=== PATIENT | female | born 1995 | race Caucasian/White ===

== ENCOUNTER 2017-01-27 23:58 | Day surgery (SDC) | payer OTHER, SELFPAY ==
[2017-01-28] MEDS ORDERED: Ondansetron 4 MG/2 ML SDV IVPUSH ONE (00:22)
[2017-01-28] MEDS ORDERED: Sodium Chloride 0.9% 1,000 ML IV ONE (00:22)
[2017-01-28] MEDS ORDERED: Ondansetron 4 MG Tab.DIS PO PRN (00:22)
--- NOTE | 2017-01-28 00:28 | EDM.PDOC ---
ED HPI GENERAL MEDICAL PROBLEM - General Chief Complaint: Abdominal Pain Stated Complaint: PT HAS STOMACH PAINS Time Seen by Provider: 01/28/17 00:28 Source of Information: Reports: Patient - History of Present Illness INITIAL COMMENTS - FREE TEXT/NARRATIVE: HISTORY AND PHYSICAL: History of present illness: Patient is had abdominal pain and nausea increasing throughout the day currently vomiting with increased pain after work this evening right upper and lower quadrant as well as. Umbilical pain no fever chills sweats Review of systems: As per history of present illness and below otherwise all systems reviewed and negative. Past medical history: As per history of present illness and as reviewed below otherwise noncontributory. Surgical history: As per history of present illness and as reviewed below otherwise noncontributory. Social history: No reported history of drug or alcohol abuse. Family history: As per history of present illness and as reviewed below otherwise noncontributory. Physical exam: HEENT: Atraumatic, normocephalic, pupils reactive, negative for conjunctival pallor or scleral icterus, mucous membranes moist, throat clear, neck supple, nontender, trachea midline. Lungs: Clear to auscultation, breath sounds equal bilaterally, chest nontender. Heart: S1S2, regular, negative for clicks, rubs, or JVD. Abdomen: Soft, nondistended, nontender. Negative for masses or hepatosplenomegaly. Negative for costovertebral tenderness. Pelvis: Stable nontender. Genitourinary: Deferred. Rectal: Deferred. Extremities: Atraumatic, negative for cords or calf pain. Neurovascular unremarkable. Neuro: Awake, alert, oriented. Cranial nerves II through XII unremarkable. Cerebellum unremarkable. Motor and sensory unremarkable throughout. Exam nonfocal. Diagnostics: []Lab as below CBC CMP amylase lipase hCG UA CT abdomen pelvis with contrast Therapeutics: []Normal saline bolus Zofran 8 mg IV Toradol 30 mg IV Normal saline 1 25 mL per hour Morphine 2 mg IV Impression: []Abdominal pain Appendicitis Definitive disposition and diagnosis as appropriate pending reevaluation and review of above. Abdominal Pain Score (Numeric/FACES): 8 - Related Data Allergies Allergy/AdvReac Type Severity Reaction Status Date / Time amoxicillin Allergy Other Verified 01/28/17 00:18 Penicillins Allergy Other Verified 01/28/17 00:18 Home Meds: Home Meds . [No Known Home Meds] 01/28/17 [History] Past Medical History - Past Health History Medical/Surgical History: Denies Medical/Surgical History Social & Family History - Tobacco Use Smoking Status *Q: Never Smoker Second Hand Smoke Exposure: No - Caffeine Use Caffeine Use: Reports: Coffee, Energy Drinks, Soda, Tea - Recreational Drug Use Recreational Drug Use: No ED ROS GENERAL - Review of Systems Review Of Systems: ROS reveals no pertinent complaints other than HPI. ED EXAM, GENERAL - Physical Exam Exam: See Below Course - Vital Signs Last Recorded V/S: Last Vital Signs Temp 97.6 F 01/28/17 00:23 Pulse 73 01/28/17 00:23 Resp 18 01/28/17 00:23 BP 128/53 L 01/28/17 00:23 Pulse Ox 97 01/28/17 00:23 - Orders/Labs/Meds Orders: Active Orders 24 hr Category Date Time Status Abdomen Pelvis w Cont [CT] Stat Exams 01/28/17 00:22 Taken Ondansetron [Zofran ODT] Med 01/28/17 00:22 Active 8 mg PO ONETIME PRN Medication Orders Ondansetron HCl (Zofran Odt) 8 mg PO ONETIME PRN PRN Reason: Nausea/Vomiting Labs: Laboratory Tests 01/28/17 01/28/17 01/28/17 Range/Units 00:21 00:21 00:31 WBC 19.03 H (4.0-11.0) K/uL RBC 4.66 (4.30-5.90) M/uL Hgb 13.5 (12.0-16.0) g/dL Hct 39.4 (36.0-46.0) % MCV 84.5 (80.0-98.0) fL MCH 29.0 (27.0-32.0) pg MCHC 34.3 (31.0-37.0) g/dL RDW Std Deviation 37.2 (28.0-62.0) fl RDW Coeff of Flaquita 12 (11.0-15.0) % Plt Count 342 (150-400) K/uL MPV 9.10 (7.40-12.00) fL Neut % (Auto) 91.6 H (48.0-80.0) % Lymph % (Auto) 5.1 L (16.0-40.0) % [place] % (Auto) 3.3 (0.0-15.0) % Eos % (Auto) 0.0 (0.0-7.0) % Baso % (Auto) 0.0 (0.0-1.5) % Neut # (Auto) 17.4 H (1.4-5.7) K/uL Lymph # (Auto) 1.0 (0.6-2.4) K/uL [place] # (Auto) 0.6 (0.0-0.8) K/uL Eos # (Auto) 0.0 (0.0-0.7) K/uL Baso # (Auto) 0.0 (0.0-0.1) K/uL Sodium (136-146) mmol/L Potassium (3.5-5.1) mmol/L Chloride (98-110) mmol/L Carbon Dioxide (21-31) mmol/L BUN (6.0-23.0) mg/dL Creatinine (0.6-1.5) mg/dL Est Cr Clr Drug Dosing mL/min Estimated GFR (MDRD) ml/min Glucose (60-110) mg/dL Calcium (8.8-10.8) mg/dL Total Bilirubin (0.1-1.5) mg/dL AST (5-40) IU/L ALT (8-54) IU/L Alkaline Phosphatase (40-150) Total Protein (6.0-8.0) g/dL Albumin (3.5-5.0) g/dL Globulin (2.0-3.5) g/dL Albumin/Globulin Ratio (1.3-2.8) Amylase (10-90) U/L Lipase (7-80) U/L Urine Color YELLOW Urine Appearance CLEAR Urine pH 7.0 (5.0-8.0) Ur Specific [employer] 1.025 (1.001-1.035) Urine Protein NEGATIVE (NEGATIVE) mg/dL Urine Glucose (UA) NEGATIVE (NEGATIVE) mg/dL Urine Ketones 40 H (NEGATIVE) mg/dL Urine Occult Blood NEGATIVE (NEGATIVE) Urine Nitrite NEGATIVE (NEGATIVE) Urine Bilirubin NEGATIVE (NEGATIVE) Urine Urobilinogen 0.2 (<2.0) EU/dL Ur Leukocyte Esterase NEGATIVE (NEGATIVE) Urine RBC 0-2 (0-2/HPF) Urine WBC 1-3 (0-5/HPF) Ur Epithelial Cells FEW (NONE-FEW) Urine Bacteria FEW (NEGATIVE) Urine Mucus FEW (NONE-MOD) Urine HCG, Qual NEGATIVE (NEGATIVE) 01/28/17 Range/Units 00:31 WBC (4.0-11.0) K/uL RBC (4.30-5.90) M/uL Hgb (12.0-16.0) g/dL Hct (36.0-46.0) % MCV (80.0-98.0) fL MCH (27.0-32.0) pg MCHC (31.0-37.0) g/dL RDW Std Deviation (28.0-62.0) fl RDW Coeff of Flaquita (11.0-15.0) % Plt Count (150-400) K/uL MPV (7.40-12.00) fL Neut % (Auto) (48.0-80.0) % Lymph % (Auto) (16.0-40.0) % [place] % (Auto) (0.0-15.0) % Eos % (Auto) (0.0-7.0) % Baso % (Auto) (0.0-1.5) % Neut # (Auto) (1.4-5.7) K/uL Lymph # (Auto) (0.6-2.4) K/uL [place] # (Auto) (0.0-0.8) K/uL Eos # (Auto) (0.0-0.7) K/uL Baso # (Auto) (0.0-0.1) K/uL Sodium 138 (136-146) mmol/L Potassium 3.9 (3.5-5.1) mmol/L Chloride 105 (98-110) mmol/L Carbon Dioxide 22 (21-31) mmol/L BUN 10 (6.0-23.0) mg/dL Creatinine 0.8 (0.6-1.5) mg/dL Est Cr Clr Drug Dosing 93.56 mL/min Estimated GFR (MDRD) > 60.0 ml/min Glucose 145 H (60-110) mg/dL Calcium 9.6 (8.8-10.8) mg/dL Total Bilirubin 0.5 (0.1-1.5) mg/dL AST 19 (5-40) IU/L ALT 14 (8-54) IU/L Alkaline Phosphatase 74 (40-150) Total Protein 7.6 (6.0-8.0) g/dL Albumin 4.4 (3.5-5.0) g/dL Globulin 3.2 (2.0-3.5) g/dL Albumin/Globulin Ratio 1.4 (1.3-2.8) Amylase 60 (10-90) U/L Lipase 13 (7-80) U/L Urine Color Urine Appearance Urine pH (5.0-8.0) Ur Specific [employer] (1.001-1.035) Urine Protein (NEGATIVE) mg/dL Urine Glucose (UA) (NEGATIVE) mg/dL Urine Ketones (NEGATIVE) mg/dL Urine Occult Blood (NEGATIVE) Urine Nitrite (NEGATIVE) Urine Bilirubin (NEGATIVE) Urine Urobilinogen (<2.0) EU/dL Ur Leukocyte Esterase (NEGATIVE) Urine RBC (0-2/HPF) Urine WBC (0-5/HPF) Ur Epithelial Cells (NONE-FEW) Urine Bacteria (NEGATIVE) Urine Mucus (NONE-MOD) Urine HCG, Qual (NEGATIVE) Meds: Medications Generic Name Dose Route Start Last Admin Trade Name Freq PRN Reason Stop Dose Admin Ondansetron HCl 8 mg 01/28/17 00:22 Zofran Odt PO ONETIME PRN Nausea/Vomiting Discontinued Medications Generic Name Dose Route Start Last Admin Trade Name Freq PRN Reason Stop Dose Admin Sodium Chloride 1,000 mls @ 999 mls/hr 01/28/17 00:22 01/28/17 00:43 Normal Saline IV 01/28/17 01:22 999 mls/hr STAT ONE Administration Ketorolac Tromethamine 30 mg 01/28/17 00:43 01/28/17 00:50 Toradol IVPUSH 01/28/17 00:44 30 mg ONETIME ONE Administration Ondansetron HCl 8 mg 01/28/17 00:22 01/28/17 00:43 Zofran IVPUSH 01/28/17 00:23 8 mg ONETIME ONE Administration Departure - Departure Time of Disposition: 03:31 Disposition: Still A Patient 30 Condition: Fair Clinical Impression: Appendicitis - Discharge Information Referrals: PCP,None [Primary Care Provider] - Forms: ED Department Discharge - My Orders Last 24 Hours: My Active Orders 01/28/17 00:22 Abdomen Pelvis w Cont [CT] Stat Ondansetron [Zofran ODT] 8 mg PO ONETIME PRN - Assessment/Plan Last 24 Hours: My Active Orders 01/28/17 00:22 Abdomen Pelvis w Cont [CT] Stat Ondansetron [Zofran ODT] 8 mg PO ONETIME PRN
[2017-01-28] MEDS ORDERED: Ketorolac 30 MG/ML SDV IVPUSH ONE (00:43)
[2017-01-28 01:02] LABS: CHLORIDE,CL 105 mmol/L (98-110); SODIUM,NA 138 mmol/L (136-146)
[2017-01-28] MEDS ORDERED: Levofloxacin/Dextrose 5%-Water 750 MG in Premix Bag 1 BAG IV ONE (04:25)
[2017-01-28] MEDS ORDERED: Lactated Ringers 1,000 ML IV SCH ×3 (04:30→06:30)
--- NOTE | 2017-01-28 04:34 | PCM.SN ---
- Free Text/Narrative Note: pt seen, chart reviewed; acute appendicitis, no abscess/rupture from ct, now for surg, r/b dw pt re bleeding/infection/damage to nearby organs/abd abscess, pt concurs and proceed. [id number]
[2017-01-28] MEDS ORDERED: Propofol 200 MG/20 ML SDV ONE (04:41)
[2017-01-28] MEDS ORDERED: Midazolam 1 MG/ML 2 ML SDV ONE (04:41)
[2017-01-28] MEDS ORDERED: fentaNYL 100 MCG/2 ML SDV ONE (04:41)
[2017-01-28] MEDS ORDERED: HYDROmorphone 2 MG/ML Syringe ONE (04:42)
[2017-01-28] MEDS ORDERED: Lidocaine 2% 5 ML SDV ONE (04:43)
[2017-01-28] MEDS ORDERED: Octyl 2-Cyanoacrylate 1 Tube ONE (04:43)
[2017-01-28] MEDS ORDERED: Neostigmine Methylsulfate 1 MG/ML 5 ML Syringe ONE (04:43)
[2017-01-28] MEDS ORDERED: Rocuronium 10 MG/ML 10 ML Syringe ONE (04:43)
[2017-01-28] MEDS ORDERED: Ondansetron 4 MG/2 ML SDV ONE (04:43)
[2017-01-28] MEDS ORDERED: diphenhydrAMINE 50 MG/ML SDV ONE (04:43)
[2017-01-28] MEDS ORDERED: Bupivacaine 25%/EPINEPHrine/PF 30 ML ONE (04:43)
[2017-01-28] MEDS ORDERED: fentaNYL 100 MCG/2 ML SDV IVPUSH PRN (04:55)
--- NOTE | 2017-01-28 04:55 | PCM.PREANE ---
Preanesthetic Assessment - Procedure Proposed Procedure: appendectomy - Anesthesia/Transfusion/Family Hx Anesthesia History: Prior Anesthesia Without Reaction (breast reduction, fractures repaired) Family History of Anesthesia Reaction: No - Review of Systems General: No Symptoms Pulmonary: No Symptoms Cardiovascular: No Symptoms Gastrointestinal: No Symptoms, Abdominal Pain Neurological: No Symptoms Other: Reports: None - Physical Assessment NPO Status Date: 01/27/17 NPO Status Time: 18:00 O2 Sat by Pulse Oximetry: 97 Respiratory Rate: 18 Vital Signs: Last Vital Signs Temp 36.4 C 01/28/17 00:23 Pulse 73 01/28/17 00:23 Resp 18 01/28/17 00:23 BP 128/53 L 01/28/17 00:23 Pulse Ox 97 01/28/17 00:23 Height: 1.6 m Weight: 72.575 kg ASA Class: 1E Mental Status: Alert & Oriented x3 Dentition: Reports: Normal Dentition Thyro-Mental Finger Breadths: 3 Mouth Opening Finger Breadths: 3 ROM/Head Extension: Full Lungs: Clear to Auscultation, Normal Respiratory Effort Cardiovascular: Regular Rate, Regular Rhythm - Lab Values: Laboratory Last Values WBC 19.03 K/uL (4.0-11.0) H 12 00:31 RBC 4.66 M/uL (4.30-5.90) 01/28/17 00:31 Hgb 13.5 g/dL (12.0-16.0) 01/28/17 00:31 Hct 39.4 % (36.0-46.0) 01/28/17 00:31 MCV 84.5 fL (80.0-98.0) 01/28/17 00:31 MCH 29.0 pg (27.0-32.0) 01/28/17 00:31 MCHC 34.3 g/dL (31.0-37.0) 01/28/17 00:31 RDW Std Deviation 37.2 fl (28.0-62.0) 01/28/17 00:31 RDW Coeff of Flaquita 12 % (11.0-15.0) 01/28/17 00:31 Plt Count 342 K/uL (150-400) 01/28/17 00:31 MPV 9.10 fL (7.40-12.00) 01/28/17 00:31 Neut % (Auto) 91.6 % (48.0-80.0) H 01/28/17 00:31 Lymph % (Auto) 5.1 % (16.0-40.0) L 01/28/17 00:31 [place] % (Auto) 3.3 % (0.0-15.0) 01/28/17 00:31 Eos % (Auto) 0.0 % (0.0-7.0) 01/28/17 00:31 Baso % (Auto) 0.0 % (0.0-1.5) 01/28/17 00:31 Neut # (Auto) 17.4 K/uL (1.4-5.7) H 01/28/17 00:31 Lymph # (Auto) 1.0 K/uL (0.6-2.4) 01/28/17 00:31 [place] # (Auto) 0.6 K/uL (0.0-0.8) 01/28/17 00: Eos # (Auto) 0.0 K/uL (0.0-0.7) 01/28/17 00:31 Baso # (Auto) 0.0 K/uL (0.0-0.1) 01/28/17 00:31 Sodium 138 mmol/L (136-146) 01/28/17 00:31 Potassium 3.9 mmol/L (3.5-5.1) 01/28/17 00:31 Chloride 105 mmol/L (98-110) 01/28/17 00:31 Carbon Dioxide 22 mmol/L (21-31) 01/28/17 00:31 BUN 10 mg/dL (6.0-23.0) 01/28/17 00:31 Creatinine 0.8 mg/dL (0.6-1.5) 01/28/17 00:31 Est Cr Clr Drug Dosing 93.56 mL/min 01/28/17 00:31 Estimated GFR (MDRD) > 60.0 ml/min 01/28/17 00:31 Glucose 145 mg/dL (60-110) H 01/28/17 00:31 Calcium 9.6 mg/dL (8.8-10.8) 01/28/17 00:31 Total Bilirubin 0.5 mg/dL (0.1-1.5) 01/28/17 00:31 AST 19 IU/L (5-40) 01/28/17 00: ALT 14 IU/L (8-54) 01/28/17 00: Alkaline Phosphatase 74 (40-150) 01/28/17 00:31 Total Protein 7.6 g/dL (6.0-8.0) 01/28/17 00: Albumin 4.4 g/dL (3.5-5.0) 01/28/17: Globulin 3.2 g/dL (2.0-3.5) 01/28/17 00: Albumin/Globulin Ratio 1.4 (1.3-2.8) 01/28/17: Amylase 60 U/L (10-90) 01/28/17: Lipase 13 U/L (7-80) 01/28/17 00: Urine Color YELLOW 01/28/17 00: Urine Appearance CLEAR 01/28/17: Urine pH 7.0 (5.0-8.0) 01/28/17 00: Ur Specific [place] 1.025 (1.001-1.035) 01/28/17 00: Urine Protein NEGATIVE mg/dL (NEGATIVE) 01/28/17: Urine Glucose (UA) NEGATIVE mg/dL (NEGATIVE) 01/28/17: Urine Ketones 40 mg/dL (NEGATIVE) H 01/28/17 00: Urine Occult Blood NEGATIVE (NEGATIVE) 01/28/17 00: Urine Nitrite NEGATIVE (NEGATIVE) 01/28/17: Urine Bilirubin NEGATIVE (NEGATIVE) 01/28/17 00: Urine Urobilinogen 0.2 EU/dL (<2.0) 01/28/17 00: Ur Leukocyte Esterase NEGATIVE (NEGATIVE) 01/28/17 00: Urine RBC 0-2 (0-2/HPF) 01/28/17: Urine WBC 1-3 (0-5/HPF) 01/28/17 00: Ur Epithelial Cells FEW (NONE-FEW) 01/28/17 00: Urine Bacteria FEW (NEGATIVE) 01/28/17 00: Urine Mucus FEW (NONE-MOD) 01/28/17: Urine HCG, Qual NEGATIVE (NEGATIVE) 01/28/17 00:21 - Allergies Allergies/Adverse Reactions: Allergies Allergy/AdvReac Type Severity Reaction Status Date / Time amoxicillin Allergy Other Verified 01/28/17 00:18 Penicillins Allergy Other Verified 01/28/17 00:18 - Blood Blood Available: No - Acknowledgements Anesthesia Type Planned: General Anesthesia Pt an Appropriate Candidate for the Planned Anesthesia: Yes Alternatives and Risks of Anesthesia Discussed w Pt/Guardian: Yes Pt/Guardian Understands and Agrees with Anesthesia Plan: Yes PreAnesthesia Questionnaire - Past Health History Medical/Surgical History: Denies Medical/Surgical History - SUBSTANCE USE Smoking Status *Q: Never Smoker Second Hand Smoke Exposure: No Recreational Drug Use History: No - HOME MEDS Home Medications: Home Meds . [No Known Home Meds] 01/28/17 [History] - CURRENT (IN HOUSE) MEDS Current Meds: Current Medications Lactated Ringer's (Ringers, Lactated) 1,000 mls @ 125 mls/hr IV ASDIRECTED [facility] Last Admin: 01/28/17 04:30 Dose: 125 mls/hr Levofloxacin/Dextrose 750 mg/ (Premix) 150 mls @ 100 mls/hr IV ONETIME ONE Stop: 01/28/17 05:54 Last Admin: 01/28/17 04:31 Dose: 100 mls/hr Lactated Ringer's (Ringers, Lactated) 1,000 mls @ 125 mls/hr IV ASDIRECTED [facility] Ondansetron HCl (Zofran Odt) 8 mg PO ONETIME PRN PRN Reason: Nausea/Vomiting Discontinued Medications Diphenhydramine HCl (Benadryl) Confirm Administered Dose 50 mg .ROUTE .STK-MED ONE Stop: 01/28/17 04:44 Fentanyl (Sublimaze) Confirm Administered Dose 100 mcg .ROUTE .STK-MED ONE Stop: 01/28/17 04:42 Glycopyrrolate () Confirm Administered Dose 1 mg .ROUTE .STK-MED ONE Stop: 01/28/17 04:44 Hydromorphone HCl (Dilaudid) Confirm Administered Dose 2 mg .ROUTE .STK-MED ONE Stop: 01/28/17 04:43 Sodium Chloride (Normal Saline) 1,000 mls @ 999 mls/hr IV STAT ONE Stop: 01/28/17 01:22 Last Admin: 01/28/17 00:43 Dose: 999 mls/hr Bupivacaine HCl/Epinephrine Bitart (Sensorc Mpf 0.25%-Epi 1:[id number]) Confirm Administered Dose 30 mls @ as directed .ROUTE .STK-MED ONE Stop: 01/28/17 04:44 Ketorolac Tromethamine (Toradol) 30 mg IVPUSH ONETIME ONE Stop: 01/28/17 00:44 Last Admin: 01/28/17 00:50 Dose: 30 mg Lidocaine (Xylocaine-Mpf 2%) Confirm Administered Dose 5 ml .ROUTE .STK-MED ONE Stop: 01/28/17 04:44 Midazolam HCl (Versed 1 Mg/Ml) Confirm Administered Dose 2 mg .ROUTE .STK-MED ONE Stop: 01/28/17 04:42 Neostigmine Methylsulfate (Neostigmine) Confirm Administered Dose 5 mg .ROUTE .STK-MED ONE Stop: 01/28/17 04:44 Octyl Cyanoacrylate (Dermabond Advance) Confirm Administered Dose 1 applic .ROUTE .STK-MED ONE Stop: 01/28/17 04:44 Ondansetron HCl (Zofran) 8 mg IVPUSH ONETIME ONE Stop: 01/28/17 00:23 Last Admin: 01/28/17 00:43 Dose: 8 mg Ondansetron HCl (Zofran) Confirm Administered Dose 4 mg .ROUTE .STK-MED ONE Stop: 01/28/17 04:44 Propofol (Diprivan 20 Ml) Confirm Administered Dose 200 mg .ROUTE .STK-MED ONE Stop: 01/28/17 04:42 Rocuronium [place] (Zemuron) Confirm Administered Dose 100 mg .ROUTE .STK-MED ONE Stop: 01/28/17 04:44
[2017-01-28] MEDS ORDERED: Iopamidol 755 Mg/ML 100 ML Bottle IVPUSH STA (05:01)
[2017-01-28] MEDS ORDERED: ePHEDrine 50 MG/ML SDV ONE (05:54)
--- NOTE | 2017-01-28 06:14 | PCM.POSTAN ---
POST ANESTHESIA ASSESSMENT - MENTAL STATUS Mental Status: Alert, Oriented - VITAL SIGNS Pulse Rate: 114 SaO2: 99 Resp Rate: 18 Blood Pressure: 109/53 Temperature: 37 C - RESPIRATORY Respiratory Status: Respiratory Rate WNL, Airway Patent, O2 Saturation Stable - CARDIOVASCULAR CV Status: Pulse Rate WNL, Blood Pressure Stable - GASTROINTESTINAL GI Status: No Symptoms - PAIN Pain Score: 0 - POST OP HYDRATION Hydration Status: Adequate & Stable
--- NOTE | 2017-01-28 06:16 | PCM.OPNOTE ---
- General Post-Op/Procedure Note Date of Surgery/Procedure: 01/28/17 Operative Procedure(s): lap appy Findings: appendix is hyperemic, indurated, hardened, and gross perf is not observed; [id number] Pre Op Diagnosis: acute appendicitis Post-Op Diagnosis: Same Anesthesia Technique: General ET Tube Primary Surgeon: Yakov Conrad Pathology: sent Complications: None Condition: Stable Free Text/Narrative:: Intake & Output 01/27/17 01/27/17 01/28/17 14:59 22:59 06:59 Output Total 100 Balance -100
[2017-01-28] MEDS ORDERED: Morphine 10 MG/ML Syringe IV PRN (06:18)
[2017-01-28] MEDS ORDERED: Morphine 10 MG/ML Syringe ONE (06:18)
[2017-01-28] MEDS ORDERED: Ondansetron 4 MG/2 ML SDV IVPUSH PRN (06:20)
--- NOTE | 2017-01-28 07:06 | OR ---
SURGEON: Yakov Conrad MD DATE OF PROCEDURE: 01/28/2017 PREOPERATIVE DIAGNOSIS: Acute appendicitis. POSTOPERATIVE DIAGNOSIS: Acute appendicitis. PROCEDURE PERFORMED: Laparoscopic appendectomy. COMPLICATIONS: None. FINDINGS: Appendix is hardened, hyperemic and very swollen. There were 2 appendicolith at the base appendix. Gross perforation is not observed. PROCEDURE IN DETAIL: The patient was taken to the operating room and placed in the supine position. Following induction of general endotracheal anesthesia, the patient's abdomen was prepped and draped in the sterile fashion. A time-out has been called. The patient was identified. The procedure was identified. The antibiotics were identified. The procedure then proceeded. The abdomen was prepped and draped in a standard fashion. After assessment of appropriate landmarks, a 12 millimeter trocar was inserted supraumbilically using Optiview and pneumoperitoneum was then achieved. This was followed with placement of 5 millimeter port in the right upper quadrant and another 5 millimeter port infraumbilically. The camera was inserted supraumbilical site and two laparoscopic [place] retractors were then inserted through the other two sites. Following the cecum, the appendix was located. The appendix was then lifted up, and using a GI stapler the appendix was amputated at the base. And using the GI stapler, the mesoappendix was then amputated. The appendix was retrieved by an endoscopic bag and sent for pathologist. This was then followed by re-insertion of the camera to examine the staple line, and hemostasis. The trocars were then removed. The umbilical site was closed with 2-0 Vicryl deep stitch and 4 -0 Vicryl and Dermabond; the other two 5 mm port sites were closed with 4-0 Vicryl and dermabond. The patient was then awakened, extubated, and transferred to the recovery room in hemodynamically stable condition. Prior to closing, sponge count and instrument count was correct. Dr. Conrad was present throughout the whole procedure. INTRAOPERATIVE FINDINGS: There are right fallopian tube cysts. As always, thank you for the kind referral. PRIMARY SURGEON: SECONDARY SURGEON: EMERGENCY MEDICAL SERVICES COORDINATOR: REASON EMERGENCY MEDICAL SERVICES COORDINATOR WAS NECESSARY: ROLE OF EMERGENCY MEDICAL SERVICES COORDINATOR: ENRIQUE / NUZHAT /[id number]
[2017-01-28] MEDS: Acetaminophen/oxyCODONE 325-5 MG Tab PO PRN ×2 (07:23→11:33)
--- NOTE | 2017-01-28 07:52 | PCM48HPAN ---
Post Anesthesia Note - EVALUATION WITHIN 48HRS OF ANESTHETIC Vital Signs in Normal Range: Yes Patient Participated in Evaluation: Yes Respiratory Function Stable: Yes Airway Patent: Yes Cardiovascular Function Stable: Yes Hydration Status Stable: Yes Pain Control Satisfactory: Yes Nausea and Vomiting Control Satisfactory: Yes Mental Status Recovered: Yes
--- NOTE | 2017-01-28 11:27 | HP ---
DATE OF : 1995 PRIMARY CARE PHYSICIAN: None PCP Consult was called, the patient was seen shortly after. CONSULTING QUESTION: Acute appendicitis. HISTORY OF PRESENT ILLNESS: The patient is a 21-year-old lady and complained over 18 hours history of acute onset of abdominal pain, and pain was very bad on a pain scale of 8, periumbilical and subsequently migrated to right lower quadrant. The patient's last meal was 12 hours ago and she threw up all. Denies fever or chills. Denies prior episode. Denies bright red blood per rectum. Denies increased pain when the car stopped in front of the stop sign. Seek help in the emergency room. CAT scan shows acute appendicitis, no perforation. Surgery was then consulted. PAST MEDICAL HISTORY: Significant for no diabetes, NC, CVA, or hypertension. PAST SURGICAL HISTORY: Breast reduction surgery. No abdominal surgery. ALLERGIES: Please refer to nursing notes for details. MEDICATIONS: Please refer to nursing notes for details. PHYSICAL EXAMINATION: GENERAL: A very pleasant lady, smiled to doctor, in no acute distress. HEENT: Normocephalic, atraumatic. Sclerae anicteric. LUNGS: Clear to auscultation. HEART: Regular rate and rhythm. ABDOMEN: Soft, nondistended. No pulsating, tender midline abdominal structure, and Rovsing sign is negative. Exquisite tenderness at the McBurney point. No rebound tenderness. No surgical scar. No hernia appreciated. IMAGING DATA: CAT scan: Acute appendicitis, no perforation. LABORATORY VALUES: White count is 19, H and H are 13 and 39, and platelet is 342. BUN and creatinine are 10 and 0.8, glucose is 145, and total bilirubin is 0.5. Amylase and lipase are normal at 60 and 13. UA negative for urinary tract infection. Beta hCG was negative. IMPRESSION: History and physical and CAT scan consistent with acute appendicitis. The patient would benefit from appendectomy in a timely fashion, and risks and benefits discussed with the patient including bleeding, infection, and damage to nearby organ and possible risks for abdominal abscess. The patient concurs and proceed with surgery. We will start with IV fluids, and Levaquin 750 IV x1 now as the patient is allergic to penicillin, PCN. We will proceed with laparoscopic possible open appendectomy. As always, thank you for the kind referral. ENRIQUE / NUZHAT /[id number] JONATHAN
--- NOTE | 2017-01-28 17:06 | CT ---
EXAM DATE: 01/28/17 PATIENT'S AGE: 21 Patient: ANGIE HAMMER Facility: [place], [place] Site . Site : 1995 Study: CT Abdomen/Pelvis [id number] 1:55:15 AM Ordering Physician: Jyoti Bautista Final Report: Indication: Lower abdominal pain and vomiting. Technique: A CT volumetric acquisition was performed of the abdomen and pelvis during the intravenous infusion of 100 cc of Isovue-370 nonionic intravenous contrast. Findings: The CT images demonstrate a normal appearance of the lung bases. Within the abdomen there is calcified granuloma within the left hepatic lobe. There are two tiny cysts noted within the posterior margin of the spleen consistent with benign posttraumatic pseudocysts. The pancreas appears normal. Gallbladder and bile ducts are normal size. The adrenal glands have normal morphology. There is normal symmetric enhancement of the kidneys. There is dilatation and acute inflammatory change within the appendix. There are several calcified appendicoliths within the lumen of the appendix. There is no evidence of perforation or abscess formation. The patient`s small intestine and colon appear normal. There is an enhancing involuting follicle within the right ovary. The left ovary and uterus appear normal. The urinary bladder appears normal. Impression: CT scan of the abdomen pelvis demonstrates findings of acute appendicitis. The appendix lies in a typical anatomic position and there is no evidence of perforation or abscess. Please note that all CT scans at this facility use dose modulation, iterative reconstruction, and/or weight-based dosing when appropriate to reduce radiation dose to as low as reasonably achievable. Dictated by Micah Albarran MD @ Jan 28 2017 11:27AM (Electronic Signature) Report Signed by Proxy. JONATHAN
== END 2017-01-28 11:35 | disposition home or self-care (01) ==
LOC: MW.ED 23:58 → MW.SDS 01-28 04:37 → MW.OB 01-28 04:48 → MW.SDS 01-28 11:35
PROVIDERS: ATTEND Surgery
DX: K35.80 Unspecified acute appendicitis (principal); Z88.0 Allergy status to penicillin; Z88.1 Allergy status to other antibiotic agents; Z98.890 Other specified postprocedural states
CPT/HCPCS: 44970; 74177; 80053; 81001; 81025; 82150; 83690; 85025; 96361; 96365; 96375; 99285; A9270; C1776; J1170; J1200; J1885; J1956; J2250; J2270; J2405; J3010; J7040; J7120; Q9967; 00840; 88304; J2704

== ENCOUNTER 2018-04-27 13:29 | Emergency (ER) | payer OTHER ==
--- NOTE | 2018-04-27 13:49 | EDM.PDOC ---
ED HPI GENERAL MEDICAL PROBLEM - General Chief Complaint: Lower Extremity Injury/Pain Stated Complaint: WORK INJURY Time Seen by Provider: 04/27/18 13:38 - History of Present Illness INITIAL COMMENTS - FREE TEXT/NARRATIVE: HISTORY AND PHYSICAL: History of present illness: The patient is a healthy 23-year-old female who presents after sustaining a work -related injury yesterday and having persistent pain at her lateral left leg. Patient says that a bull got his head caught in a fence and she was on the other side of the fence and when the bull push the fence forward she fell backwards landing on her buttocks and getting her left leg stuck underneath the gait. She says she did hit her head and had a bloody nose which stopped quickly. She did not pass out or blackout and has no head neck or back pain. She is here complaining of persistent pain to the lateral aspect of her distal left leg. She says she has taken [id number] pain medications that are Motrin based and is here for evaluation of persistent pain. She has no distal foot or toe pain and no proximal knee leg or hip pain. She says she has little discomfort at her but where she fell but she is not concerned about that. His been eating and drinking normally and has no other systemic complaints Review of systems: As per history of present illness and below otherwise all systems reviewed and negative. Past medical history: As per history of present illness and as reviewed below otherwise noncontributory. Surgical history: As per history of present illness and as reviewed below otherwise noncontributory. Social history: No reported history of drug or alcohol abuse. Family history: As per history of present illness and as reviewed below otherwise noncontributory. Physical exam: General: Well-developed well-nourished female who is nontoxic and vital signs are reviewed by me HEENT: Atraumatic, normocephalic, pupils reactive, negative for conjunctival pallor or scleral icterus, mucous membranes moist, throat clear, neck supple, nontender, trachea midline. Is no visible nasal bleeding nor any crusting seen and the nose and facial architecture appear intact without any soft tissue swelling defects or deformities. Lungs: Clear to auscultation, breath sounds equal bilaterally, chest nontender. Heart: S1S2, regular rate and rhythm no overt murmurs Abdomen: Soft, nondistended, nontender. NABS Pelvis: Stable nontender. No lateral hip tenderness on the left Genitourinary: Deferred. Rectal: Deferred. Extremities: Atraumatic appearing throughout all extremities including the left lower leg and ankle. There is a mild tenderness at palpation of the lateral malleolus and the lateral distal aspect of the fibula with some soft tissue discomfort but there is no ecchymosis erythema soft tissue swelling defects or deformities. Distally at the foot and toes there are no tenderness defects or deformities nor is there any proximal knee thigh or hip tenderness defects or deformities., . Neurovascular unremarkable. Neuro: Awake, alert, oriented. Cranial nerves II through XII unremarkable. Cerebellum unremarkable. Motor and sensory unremarkable throughout. Exam nonfocal. Diagnostics: Left tib-fib x-ray Therapeutics: Impression: Left lateral lower leg injury/contusion Definitive disposition and diagnosis as appropriate pending reevaluation and review of above. Left Ankle Pain Score (Numeric/FACES): 7 - Related Data Allergies Allergy/AdvReac Type Severity Reaction Status Date / Time amoxicillin Allergy Other Verified 04/27/18 13:48 Penicillins Allergy Other Verified 04/27/18 13:48 Home Meds: Home Meds medroxyPROGESTERone [Depo-Provera Contraceptive] ASDIRECTED 04/27/18 [History] Past Medical History - Past Health History Medical/Surgical History: Denies Medical/Surgical History Social & Family History - Caffeine Use Caffeine Use: Reports: Coffee, Energy Drinks, Soda, Tea Review of Systems - Review of Systems Review Of Systems: ROS reveals no pertinent complaints other than HPI. ED EXAM, GENERAL - Physical Exam Exam: See Below (See dictation) Course - Vital Signs Last Recorded V/S: Last Vital Signs Temp 36.1 C 04/27/18 13:44 Pulse 95 04/27/18 13:44 Resp 18 04/27/18 13:44 BP 107/66 04/27/18 13:44 Pulse Ox 97 04/27/18 13:44 Departure - Departure Time of Disposition: 14:22 Disposition: Home, Self-Care 01 Condition: Good Clinical Impression: Left leg injury - Discharge Information Referrals: PCP,None [Primary Care Provider] - Forms: ED Department Discharge Additional Instructions: The following information is given to patients seen in the emergency department who are being discharged to home. This information is to outline your options for follow-up care. We provide all patients seen in our emergency department with a follow-up referral. The need for follow-up, as well as the timing and circumstances, are variable depending upon the specifics of your emergency department visit. If you don't have a primary care physician on staff, we will provide you with a referral. We always advise you to contact your personal physician following an emergency department visit to inform them of the circumstance of the visit and for follow-up with them and/or the need for any referrals to a consulting specialist. The emergency department will also refer you to a specialist when appropriate. This referral assures that you have the opportunity for followup care with a specialist. All of these measure are taken in an effort to provide you with optimal care, which includes your followup. Under all circumstances we always encourage you to contact your private physician who remains a resource for coordinating your care. When calling for followup care, please make the office aware that this follow-up is from your recent emergency room visit. If for any reason you are refused follow-up, please contact the [facility] emergency department at and ask to speak to the emergency department charge nurse. [facility]--Orthopedic clinic Professional Building [address] [place] [address] Ice and elevate the area and continue to use [id number] ibuprofen/Motrin for pain. Please call and schedule a follow-up appointment in orthopedics department if the pain persists or you would like reevaluation and return to ER as needed and as discussed.
--- NOTE | 2018-04-27 14:20 | CR ---
INDICATION: Injury to left leg. TECHNIQUE: X-ray left tibia/fibula, 2 views. COMPARISON: None available. FINDINGS: Negative for acute fracture dislocation. The overlying soft tissue is unremarkable. No radiopaque foreign body is seen. IMPRESSION: Negative for acute fracture. Dictated by Viviana Sharma MD @ 04/27/2018 2:18:14 PM Dictated by: Viviana Sharma MD @ 04/27/2018 14:18:23 (Electronically Signed)
== END 2018-04-27 14:34 | disposition home or self-care (01) ==
LOC: MW.ED 13:29
DX: S80.12XA Contusion of left lower leg, initial encounter (principal); Z88.1 Allergy status to other antibiotic agents; Z88.0 Allergy status to penicillin; W19.XXXA Unspecified fall, initial encounter; Y99.0 Civilian activity done for income or pay
CPT/HCPCS: 73590-26-LT; 73590-LT; 99283; 99283-25

== ENCOUNTER 2018-10-13 02:55 | Emergency (ER) | payer SELFPAY ==
[2018-10-13] MEDS ORDERED: Ondansetron 4 MG/2 ML SDV ONE (03:06)
[2018-10-13] MEDS ORDERED: Sodium Chloride 0.9% 1,000 ML IV ONE (03:07)
[2018-10-13] MEDS ORDERED: Ondansetron 4 MG/2 ML SDV IVPUSH ONE (03:07)
--- NOTE | 2018-10-13 03:44 | CT ---
INDICATION: Headache TECHNIQUE: CT head without contrast. COMPARISON: None FINDINGS: CSF spaces: Within normal limits for age. Brain parenchyma: The luna-white differentiation is normal. No sign of mass, hemorrhage, or midline shift. Skull base and calvarium: The visualized paranasal sinuses and mastoid air cells demonstrate no acute or significant findings. The visualized orbits are grossly unremarkable. No skull fractures. IMPRESSION: Unremarkable noncontrast head CT. Please note that all CT scans at this facility use dose modulation, iterative reconstruction, and/or weight-based dosing when appropriate to reduce radiation dose to as low as reasonably achievable. Dictated by Shruthi Ellison MD @ Oct 13 2018 3:40AM Signed by Dr. Shruthi Ellison @ Oct 13 2018 3:42AM
[2018-10-13] MEDS ORDERED: Ketorolac 30 MG/ML SDV ONE (03:49)
[2018-10-13] MEDS ORDERED: Ketorolac 30 MG/ML SDV IVPUSH ONE (03:53)
--- NOTE | 2018-10-13 03:55 | EDM.PDOC ---
ED HPI GENERAL MEDICAL PROBLEM - General Chief Complaint: Headache Stated Complaint: HEADACHES Time Seen by Provider: 10/13/18 03:52 - History of Present Illness INITIAL COMMENTS - FREE TEXT/NARRATIVE: HISTORY AND PHYSICAL: History of present illness: Patient's 23-year-old female presents with a concern of headache status post head injury she denies neck pain denies loss of consciousness denies any other concern.Review of systems: As per history of present illness and below otherwise all systems reviewed and negative. Past medical history: As per history of present illness and as reviewed below otherwise noncontributory. Surgical history: As per history of present illness and as reviewed below otherwise noncontributory. Social history: No reported history of drug or alcohol abuse. Family history: As per history of present illness and as reviewed below otherwise noncontributory. Physical exam: HEENT: Atraumatic, normocephalic, pupils reactive, negative for conjunctival pallor or scleral icterus, mucous membranes moist, throat clear, neck supple, nontender, trachea midline. Lungs: Clear to auscultation, breath sounds equal bilaterally, chest nontender. Heart: S1S2, regular, negative for clicks, rubs, or JVD. Abdomen: Soft, nondistended, nontender. Negative for masses or hepatosplenomegaly. Negative for costovertebral tenderness. Pelvis: Stable nontender. Genitourinary: Deferred. Rectal: Deferred. Extremities: Atraumatic, negative for cords or calf pain. Neurovascular unremarkable. Neuro: Awake, alert, oriented. Cranial nerves II through XII unremarkable. Cerebellum unremarkable. Motor and sensory unremarkable throughout. Exam nonfocal. Diagnostics: CT brain Therapeutics: Toradol 60 mg IM Zofran 4 mg IM Impression: #1 head injury #2 medical screening exam Definitive disposition and diagnosis as appropriate pending reevaluation and review of above. head Pain Score (Numeric/FACES): 8 - Related Data Allergies Allergy/AdvReac Type Severity Reaction Status Date / Time Penicillins Allergy Rash Verified 10/13/18 03:06 Home Meds: Home Meds medroxyPROGESTERone [Depo-Provera Contraceptive] 1 tab PO DAILY 04/27/18 [ History] Past Medical History - Past Health History Medical/Surgical History: Denies Medical/Surgical History - Past Surgical History GI Surgical History: Reports: Appendectomy Female Surgical History: Reports: Breast Reduction Musculoskeletal Surgical History: Reports: Other (See Below) Other Musculoskeletal Surgeries/Procedures:: elbow surgery Social & Family History - Family History Family Medical History: Noncontributory - Tobacco Use Smoking Status *Q: Current Every Day Smoker Years of Tobacco use: 1 Packs/Tins Daily: 1 - Caffeine Use Caffeine Use: Reports: Coffee, Energy Drinks, Soda, Tea - Recreational Drug Use Recreational Drug Use: No ED ROS GENERAL - Review of Systems Review Of Systems: ROS reveals no pertinent complaints other than HPI. ED EXAM, GENERAL - Physical Exam Exam: See Below (See dictation) Course - Vital Signs Last Recorded V/S: Last Vital Signs Temp 36.1 C 10/13/18 03:07 Pulse 80 10/13/18 03:07 Resp 18 10/13/18 03:07 BP 118/90 10/13/18 03:07 Pulse Ox 94 L 10/13/18 03:07 - Orders/Labs/Meds Orders: Active Orders 24 hr Category Date Time Status Sodium Chloride 0.9% [Normal Saline] 1,000 ml Med 10/13/18 03:07 Active IV .Bolus Medication Orders Sodium Chloride (Normal Saline) 1,000 mls @ 999 mls/hr IV .Bolus ONE Stop: 10/13/18 04:07 Last Admin: 10/13/18 03:11 Dose: 999 mls/hr Meds: Medications Generic Name Dose Route Start Last Admin Trade Name Freq PRN Reason Stop Dose Admin Sodium Chloride 1,000 mls @ 999 mls/hr 10/13/18 03:07 10/13/18 03:11 Normal Saline IV 10/13/18 04:07 999 mls/hr .Bolus ONE Administration Discontinued Medications Generic Name Dose Route Start Last Admin Trade Name Freq PRN Reason Stop Dose Admin Ketorolac Tromethamine Confirm 10/13/18 03:49 Toradol Administered 10/13/18 03:50 Dose 30 mg .ROUTE .STK-MED ONE Ondansetron HCl 4 mg 10/13/18 03:07 10/13/18 03:11 Zofran IVPUSH 10/13/18 03:08 4 mg ONETIME ONE Administration Ondansetron HCl Confirm 10/13/18 03:06 10/13/18 03:21 Zofran Administered 10/13/18 03:07 Not Given Dose 4 mg .ROUTE .STK-MED ONE Departure - Departure Time of Disposition: 03:54 Disposition: Home, Self-Care 01 Condition: Good Clinical Impression: Head injury, Encounter for medical screening examination - Discharge Information Referrals: PCP,None [Primary Care Provider] - Care Plan Goals: The following information is given to patients seen in the emergency department who are being discharged to home. This information is to outline your options for follow-up care. We provide all patients seen in our emergency department with a follow-up referral. The need for follow-up, as well as the timing and circumstances, are variable depending upon the specifics of your emergency department visit. If you don't have a primary care physician on staff, we will provide you with a referral. We always advise you to contact your personal physician following an emergency department visit to inform them of the circumstance of the visit and for follow-up with them and/or the need for any referrals to a consulting specialist. The emergency department will also refer you to a specialist when appropriate. This referral assures that you have the opportunity for followup care with a specialist. All of these measure are taken in an effort to provide you with optimal care, which includes your followup. Under all circumstances we always encourage you to contact your private physician who remains a resource for coordinating your care. When calling for followup care, please make the office aware that this follow-up is from your recent emergency room visit. If for any reason you are refused follow-up, please contact the [facility] emergency department at and asked to speak to the emergency department charge nurse. Motrin/Tylenol as directed follow-up primary medical doctor as needed as discussed return as needed as discussed - My Orders Last 24 Hours: My Active Orders 10/13/18 03:07 Sodium Chloride 0.9% [Normal Saline] 1,000 ml IV .Bolus - Assessment/Plan Last 24 Hours: My Active Orders 10/13/18 03:07 Sodium Chloride 0.9% [Normal Saline] 1,000 ml IV .Bolus
== END 2018-10-13 04:06 | disposition home or self-care (01) ==
LOC: MW.ED 02:55
DX: S09.90XA Unspecified injury of head, initial encounter (principal); Z88.0 Allergy status to penicillin; Z90.49 Acquired absence of other specified parts of digestive tract; Z79.899 Other long term (current) drug therapy; W22.8XXA Striking against or struck by other objects, initial encounter
CPT/HCPCS: 70450; 96361; 96374; 96375; 99284; J1885; J2405; J7040

== ENCOUNTER 2020-11-27 12:37 | Emergency (ER) | payer SELFPAY ==
[2020-11-27 16:13] LABS: BLOOD UREA NITROGEN,BUN 8 mg/dL (7.0-18.0); CHLORIDE,CL 104 mmol/L (98-107); GLUCOSE RANDOM 97 mg/dL (74-106); POTASSIUM,K 4.3 mmol/L (3.5-5.1); SODIUM,NA 139 mmol/L (136-145)
--- NOTE | 2020-11-27 17:54 | US ---
INDICATION: , unknown dates, bleeding. Beta hCG 359. TECHNIQUE: Transabdominal and transvaginal 1st trimester OB ultrasound. FINDINGS: Uterus is retroverted. There is no clinical intrauterine identified. There is a heterogeneous area in the endometrium of the lower uterine segment measuring 3.4 x 1.2 x 2.0 cm. No detectable color flow in this area. The fundal endometrium is homogeneous. Both maternal ovaries appear normal. Normal color and spectral Doppler flow to both ovaries. No adnexal mass. IMPRESSION: 1. No intrauterine identified, however at a beta HCG of 359 a may not be visible by ultrasound. 2. Heterogeneous area in the endometrium of the lower uterine segment. Differential considerations include clot, molar . Continued sonographic and HCG follow-up recommended. Dictated by Dinh Villareal MD @ 11/27/2020 5:52:05 PM (Electronically Signed)
--- NOTE | 2020-11-27 18:18 | EDM.PDOC ---
ED HPI GENERAL MEDICAL PROBLEM - General Chief Complaint: General Stated Complaint: CRAMPING AND BLEEDING Time Seen by Provider: 11/27/20 15:30 Source of Information: Reports: Patient History Limitations: Reports: No Limitations - History of Present Illness INITIAL COMMENTS - FREE TEXT/NARRATIVE: HISTORY AND PHYSICAL: History of present illness: Patient is a 25-year-old female who presents emergency room today with concern of abnormal vaginal bleeding and cramping. Patient states that she started bleeding 2 days ago and states that she believes this is her regular menstrual cycle but states that the cramping is more painful than usual and states that the bleeding is heavier than her usual menstrual cycles. Patient states that she is not on control at this time and is sexually active. Patient states that she is not trying to get . Patient states that she began bleeding 2 days ago and has been passing clots that she states is heavier than her typical menstrual cycle and states that the abdominal cramping is more painful than usual. Patient states that she has not taken anything for her symptoms. Patient states earlier today she was using 1 super tampon and 1 regular pad approximately every hour but states that since coming to the emergency room, this has significantly lightened and states that she is not bleeding very heavy any longer. Patient states that since coming to the emergency room, she has only used 1 tampon and has not leaked into a pad. Patient denies any health history or any history. Denies any other symptoms or concerns. Patient denies fever, chills, chest pain, shortness of breath, or cough. Denies headache, neck stiff ness, change in vision, syncope, or near syncope. Denies nausea, vomiting, diarrhea, constipation, or dysuria. Has not noted any blood in urine or stool. Patient has been eating and drinking appropriately. Review of systems: As per history of present illness and below otherwise all systems reviewed and negative. Past medical history: As per history of present illness and as reviewed below otherwise noncontributory. Surgical history: As per history of present illness and as reviewed below otherwise noncontributory. Social history: See social history for further information Family history: As per history of present illness and as reviewed below otherwise noncontributory. Physical exam: General: Patient is alert, oriented, and in no acute distress. Patient sitting comfortably on exam table. Vitals stable and reviewed by me. HEENT: Atraumatic, normocephalic, pupils equal and reactive bilaterally, negative for conjunctival pallor or scleral icterus, mucous membranes moist, TMs normal bilaterally, throat clear, neck supple, nontender, trachea midline. No drooling or trismus noted. No meningeal signs. No hot potato voice noted. Lungs: Clear to auscultation, breath sounds equal bilaterally, chest nontender. Heart: S1S2, regular rate and rhythm without overt murmur Abdomen: Soft, nondistended, nontender. Negative for masses or hepatosplenomegaly. Negative for costovertebral tenderness. Pelvis: Stable nontender. Genitourinary: Deferred. Rectal: Deferred. Skin: Intact, warm, dry. No lesions or rashes noted. Extremities: Atraumatic, negative for cords or calf pain. Neurovascular unremarkable. Neuro: Awake, alert, oriented. Cranial nerves II through XII unremarkable. Cerebellum unremarkable. Motor and sensory unremarkable throughout. Exam nonfocal. Notes: Patient is a 25-year-old female who presents emergency room today with concern of heavier vaginal bleeding with cramping over the past 1 to 2 days. Upon arrival to the ED, patient is vitally stable and well-appearing on exam. Patient does not have any abdominal tenderness on exam. Given the status of the emergency room and bed availability, unable to obtain a genitourinary exam at this time. However, will obtain basic lab work, urinalysis, and test. Urine unremarkable. However, patient does have a positive urine test. Patient is not aware of being at this time so will add on hCG quant, Rh/blood type, and transvaginal ultrasound. CBC shows mild leukocytosis with white blood cell count at 11.88 which at this time is nonspecific. Hemoglobin and hematocrit are 13.1 and 38.9 and within normal limits. Otherwise mild derangements of CBC unremarkable. CMP unremarkable. hCG quant is 359. Patient is O+ blood type so does not require RhoGam. Transvaginal ultrasound shows no intrauterine identified, however, beta-hCG of 359 not visible by ultrasound. Heterogeneous area in the endometrium of the lower uterine segment. Differential considerations include clot, molar . Recommend serial hCG follow-up and sonographic ultrasound recommended. Upon reevaluation of patient, he remains vitally stable and comfortable throughout stay in ED. She does express that her bleeding is drastically lightened since arriving to the ED. Patient states that she has not establish care for this as she was unaware that she was until her arrival to the emergency room. However, patient states that she has frequently received women's health care from Dr. Truong at [facility] for control and routine annual exams and would plan to follow-up with Dr. Truong. Discussed the importance of calling Dr. Truong's clinic in the morning to establish an appointment time for close follow-up and repeat hCG quant and ultrasound. At this time, bed status for exam is still unavailable. However, patient request to have her exam performed by her [facility]ILD CARE CENTRE MANAGER provider and does not want to wait for bed availability. Also discussed with patient starting a vitamin at this time as unsure status of . Strict return precautions thoroughly discussed with patient. Discussed importance for follow- up with her [facility]ILD CARE CENTRE MANAGER provider. Voices understanding and is agreeable to plan of care. Denies any further questions or concerns at this time. Diagnostics: CBC, CMP, hCG quant, Rh/blood type, UA, urine hCG, transvaginal ultrasound Therapeutics: None Prescription: None Impression: Abnormal vaginal bleeding Positive test Plan: 1. Please start and/or continue to take your vitamin with folic acid once daily. 2. Pelvic rest until cleared by your OBGYN (no tampons, sex, etc...) 3. Tylenol as needed for pain management. This is safe to use in . 4. Follow up with your [facility]ILD CARE CENTRE MANAGER as discussed. Return to the ED as needed and as discussed. Definitive disposition and diagnosis as appropriate pending reevaluation and review of above. back Pain Score (Numeric/FACES): 5 - Related Data Allergies Allergy/AdvReac Type Severity Reaction Status Date / Time Penicillins Allergy Rash Verified 10/13/18 03:06 Home Meds: Home Meds medroxyPROGESTERone [Depo-Provera Contraceptive] 1 tab PO DAILY 04/27/18 [History] Past Medical History - Past Health History Medical/Surgical History: Denies Medical/Surgical History - Past Surgical History GI Surgical History: Reports: Appendectomy Female Surgical History: Reports: Breast Reduction Musculoskeletal Surgical History: Reports: Other (See Below) Other Musculoskeletal Surgeries/Procedures:: elbow surgery Social & Family History - Family History Family Medical History: No Pertinent Family History - Tobacco Use Tobacco Use Status *Q: Never Tobacco User - Caffeine Use Caffeine Use: Reports: Coffee, Energy Drinks, Soda, Tea - Recreational Drug Use Recreational Drug Use: No ED ROS GENERAL - Review of Systems Review Of Systems: Comprehensive ROS is negative, except as noted in HPI. ED EXAM, GENERAL - Physical Exam Exam: See Below (See dictation) Course - Vital Signs Last Recorded V/S: Last Vital Signs Temp 97.9 F 11/27/20 18:26 Pulse 75 11/27/20 18:26 Resp 16 11/27/20 18:26 BP 94/58 L 11/27/20 18:26 Pulse Ox 98 11/27/20 18:26 - Orders/Labs/Meds Labs: Laboratory Tests 11/27/20 11/27/20 11/27/20 Range/Units 14:40 14:40 15:36 WBC 11.88 H (4.0-11.0) K/uL RBC 4.47 (4.30-5.90) M/uL Hgb 13.1 (12.0-16.0) g/dL Hct 38.9 (36.0-46.0) % MCV 87.0 (80.0-98.0) fL MCH 29.3 (27.0-32.0) pg MCHC 33.7 (31.0-37.0) g/dL RDW Std Deviation 41.1 (28.0-62.0) fl RDW Coeff of [place]qu[place] 13 (11.0-15.0) % Plt Count 347 (150-400) K/uL MPV 9.10 (7.40-12.00) fL Neut % (Auto) 79.5 (48.0-80.0) % Lymph % (Auto) 15.7 L (16.0-40.0) % Coles % (Auto) 4.5 (0.0-15.0) % Eos % (Auto) 0.2 (0.0-7.0) % Baso % (Auto) 0.1 (0.0-1.5) % Neut # (Auto) 9.4 H (1.4-5.7) K/uL Lymph # (Auto) 1.9 (0.6-2.4) K/uL Coles # (Auto) 0.5 (0.0-0.8) K/uL Eos # (Auto) 0.0 (0.0-0.7) K/uL Baso # (Auto) 0.0 (0.0-0.1) K/uL Nucleated RBC % 0.0 /100WBC Nucleated RBCs # 0 K/uL Sodium (136-145) mmol/L Potassium (3.5-5.1) mmol/L Chloride (98-107) mmol/L Carbon Dioxide (21.0-32.0) mmol/L BUN (7.0-18.0) mg/dL Creatinine (0.6-1.0) mg/dL Est Cr Clr Drug Dosing mL/min Estimated GFR (MDRD) ml/min Glucose (74-106) mg/dL Calcium (8.5-10.1) mg/dL Total Bilirubin (0.2-1.0) mg/dL AST (15-37) IU/L ALT (14-63) IU/L Alkaline Phosphatase (46-116) U/L Total Protein (6.4-8.2) g/dL Albumin (3.4-5.0) g/dL Globulin (2.6-4.0) g/dL Albumin/Globulin Ratio (0.9-1.6) HCG, Quant mIU/mL Urine Color YELLOW Urine Appearance CLEAR Urine pH 6.0 (5.0-8.0) Ur Specific [place] 1.015 (1.001-1.035) Urine Protein NEGATIVE (NEGATIVE) mg/dL Urine Glucose (UA) NEGATIVE (NEGATIVE) mg/dL Urine Ketones NEGATIVE (NEGATIVE) mg/dL Urine Occult Blood LARGE H (NEGATIVE) Urine Nitrite NEGATIVE (NEGATIVE) Urine Bilirubin NEGATIVE (NEGATIVE) Urine Urobilinogen 0.2 (<2.0) EU/dL Ur Leukocyte Esterase NEGATIVE (NEGATIVE) Urine RBC 1-3 (0-2/HPF) Urine WBC 0-1 (0-5/HPF) Ur Epithelial Cells OCCASIONAL (NONE-FEW) Urine Bacteria NOT SEEN (NEGATIVE) Urine HCG, Qual POSITIVE (NEGATIVE) Blood Type 11/27/20 11/27/20 Range/Units 15:36 15:36 WBC (4.0-11.0) K/uL RBC (4.30-5.90) M/uL Hgb (12.0-16.0) g/dL Hct (36.0-46.0) % MCV (80.0-98.0) fL MCH (27.0-32.0) pg MCHC (31.0-37.0) g/dL RDW Std Deviation (28.0-62.0) fl RDW Coeff of Flaquita (11.0-15.0) % Plt Count (150-400) K/uL MPV (7.40-12.00) fL Neut % (Auto) (48.0-80.0) % Lymph % (Auto) (16.0-40.0) % Coles % (Auto) (0.0-15.0) % Eos % (Auto) (0.0-7.0) % Baso % (Auto) (0.0-1.5) % Neut # (Auto) (1.4-5.7) K/uL Lymph # (Auto) (0.6-2.4) K/uL Coles # (Auto) (0.0-0.8) K/uL Eos # (Auto) (0.0-0.7) K/uL Baso # (Auto) (0.0-0.1) K/uL Nucleated RBC % /100WBC Nucleated RBCs # K/uL Sodium 139 (136-145) mmol/L Potassium 4.3 (3.5-5.1) mmol/L Chloride 104 (98-107) mmol/L Carbon Dioxide 28.0 (21.0-32.0) mmol/L BUN 8 (7.0-18.0) mg/dL Creatinine 0.7 (0.6-1.0) mg/dL Est Cr Clr Drug Dosing 103.40 mL/min Estimated GFR (MDRD) > 60.0 ml/min Glucose 97 (74-106) mg/dL Calcium 9.0 (8.5-10.1) mg/dL Total Bilirubin 0.2 (0.2-1.0) mg/dL AST 15 (15-37) IU/L ALT 20 (14-63) IU/L Alkaline Phosphatase 69 (46-116) U/L Total Protein 7.0 (6.4-8.2) g/dL Albumin 3.9 (3.4-5.0) g/dL Globulin 3.1 (2.6-4.0) g/dL Albumin/Globulin Ratio 1.3 (0.9-1.6) HCG, Quant 359.0 mIU/mL Urine Color Urine Appearance Urine pH (5.0-8.0) Ur Specific [place] (1.001-1.035) Urine Protein (NEGATIVE) mg/dL Urine Glucose (UA) (NEGATIVE) mg/dL Urine Ketones (NEGATIVE) mg/dL Urine Occult Blood (NEGATIVE) Urine Nitrite (NEGATIVE) Urine Bilirubin (NEGATIVE) Urine Urobilinogen (<2.0) EU/dL Ur Leukocyte Esterase (NEGATIVE) Urine RBC (0-2/HPF) Urine WBC (0-5/HPF) Ur Epithelial Cells (NONE-FEW) Urine Bacteria (NEGATIVE) Urine HCG, Qual (NEGATIVE) Blood Type O POSITIVE Departure - Departure Time of Disposition: 18:17 Disposition: Home, Self-Care 01 Clinical Impression: Abnormal vaginal bleeding, Positive test - Discharge Information Referrals: PCP,None [Primary Care Provider] - Forms: ED Department Discharge Additional Instructions: The following information is given to patients seen in the emergency department who are being discharged to home. This information is to outline your options for follow-up care. We provide all patients seen in our emergency department with a follow-up referral. The need for follow-up, as well as the timing and circumstances, are variable depending upon the specifics of your emergency department visit. If you don't have a primary care physician on staff, we will provide you with a referral. We always advise you to contact your personal physician following an emergency department visit to inform them of the circumstance of the visit and for follow-up with them and/or the need for any referrals to a consulting specialist. The emergency department will also refer you to a specialist when appropriate. This referral assures that you have the opportunity for follow-up care with a specialist. All of these measure are taken in an effort to provide you with optimal care, which includes your follow-up. Under all circumstances we always encourage you to contact your private physician who remains a resource for coordinating your care. When calling for follow-up care, please make the office aware that this follow-up is from your recent emergency room visit. If for any reason you are refused follow-up, please contact the [facility] Emergency Department at and asked to speak to the emergency department charge nurse. [facility] [address] [place] [address] [facility] [address] [place] [address] 1. Please start and/or continue to take your vitamin with folic acid once daily. 2. Pelvic rest until cleared by your OBGYN (no tampons, sex, etc...) 3. Tylenol as needed for pain management. This is safe to use in . 4. Follow up with your [facility]ILD CARE CENTRE MANAGER as discussed. Return to the ED as needed and as discussed. Sepsis Event Note (ED) - Evaluation Sepsis Screening Result: No Definite Risk - Focused Exam Vital Signs: Vital Signs Temp Pulse Resp BP Pulse Ox 11/27/20 18:26 97.9 F 75 16 94/58 L 98 11/27/20 17:26 80 18 101/55 L 98 11/27/20 15:07 97.9 F 88 16 122/93 H 99
== END 2020-11-27 18:27 | disposition home or self-care (01) ==
LOC: MW.ED 12:37
DX: Z32.01 Encounter for pregnancy test, result positive (principal); O20.9 Hemorrhage in early pregnancy, unspecified; Z88.0 Allergy status to penicillin
CPT/HCPCS: 36415; 76801; 76801-26; 80053; 81001; 81025; 84702; 85025; 86900; 86901; 99284-25

== ENCOUNTER 2021-09-24 07:48 | Emergency (ER) | payer SELFPAY ==
[2021-09-24 10:08] LABS: CORONAVIRUS COVID-19 NAA NEGATIVE (NEGATIVE); INFLUENZA A NAA NEGATIVE (NEGATIVE); INFLUENZA B NAA NEGATIVE (NEGATIVE)
[2021-09-24] MEDS ORDERED: Cephalexin 500 MG Cap PO STA (10:14)
[2021-09-24] MEDS ORDERED: Dexamethasone 4 MG Tab PO STA (10:14)
[2021-09-24] MEDS ORDERED: Ketorolac 30 MG/ML SDV IM STA (10:15)
== END 2021-09-24 11:30 | disposition home or self-care (01) ==
LOC: MW.ED 07:48
DX: J02.0 Streptococcal pharyngitis (principal); Z88.0 Allergy status to penicillin; Z79.899 Other long term (current) drug therapy; Z20.822 Contact with and (suspected) exposure to COVID-19
CPT/HCPCS: 0240U; 87651; 96372; 99283; A9270; J1885; J8540

== ENCOUNTER 2023-01-09 21:14 | Emergency (ER) | payer SELFPAY ==
[2023-01-09 22:25] LABS: CORONAVIRUS COVID-19 NAA POSITIVE (NEGATIVE); INFLUENZA A NAA NEGATIVE (NEGATIVE); INFLUENZA B NAA NEGATIVE (NEGATIVE)
[2023-01-09] MEDS ORDERED: Acetaminophen 500 MG Tab PO ONE (23:14)
== END 2023-01-09 23:41 | disposition home or self-care (01) ==
LOC: MW.ED 21:14
DX: O98.511 Other viral diseases complicating pregnancy, first trimester (principal); U07.1 COVID-19; Z87.891 Personal history of nicotine dependence; Z88.0 Allergy status to penicillin; Z3A.01 Less than 8 weeks gestation of pregnancy
CPT/HCPCS: 0240U; 99284; A9270; 99283

== ENCOUNTER 2023-02-22 21:30 | Emergency (ER) | payer BC ==
[2023-02-22] MEDS ORDERED: Sodium Chloride 0.9% 1,000 ML IV ONE (23:30)
[2023-02-22] MEDS ORDERED: Sodium Chloride 0.9% 10 ML Syringe FLUSH PRN (23:30)
[2023-02-22] MEDS ORDERED: diphenhydrAMINE 50 MG/ML SDV IVPUSH ONE (23:30)
[2023-02-22] MEDS ORDERED: Sodium Chloride 0.9% 2.5 ML Syringe FLUSH PRN (23:30)
[2023-02-22] MEDS ORDERED: Metoclopramide 10 MG/2 ML SDV IVPUSH ONE (23:32)
[2023-02-23 00:11] LABS: BASOPHILS ABSOLUTE AUTO 0.02 K/uL (0.00-0.20); BASOPHILS PERCENT AUTO 0.2 % (0.0-1.0); EOSINOPHILS ABSOLUTE AUTO 0.05 K/uL (0.00-0.45); EOSINOPHILS PERCENT AUTO 0.5 % (0.0-6.0); HEMATOCRIT 33.4 % (37.0-47.0); IMMATURE GRAN ABSOLUTE AUTO 0.03 K/uL (0.00-0.05); IMMATURE GRAN PERCENT AUTO 0.3 % (0.0-0.4); LYMPHOCYTES ABSOLUTE AUTO 2.56 K/uL (1.00-4.80); LYMPHOCYTES PERCENT AUTO 25.7 % (24.0-44.0); MEAN CORPUSCULAR HEMOGLOBIN 30.4 pg (28.0-32.0); MEAN CORPUSCULAR HGB CONC 35.9 g/dL (32.0-36.0); MEAN CORPUSCULAR VOLUME 84.6 fL (83.0-99.0); MEAN PLATELET VOLUME 8.9 fL (9.4-12.3); MONOCYTES ABSOLUTE AUTO 0.59 K/uL (0.00-0.80); MONOCYTES PERCENT AUTO 5.9 % (0.0-8.0); NEUTROPHILS PERCENT AUTO 67.4 % (41.0-71.0); PLATELET COUNT,PLT 312 K/uL (150-400); RED BLOOD CELL COUNT 3.95 M/uL (4.10-5.30); WHITE BLOOD CELL COUNT,WBC 9.95 K/uL (3.9-11.3)
[2023-02-23 00:18] LABS: APPEARANCE,URINE CLEAR; BILIRUBIN,URINE NEGATIVE (NEGATIVE); COLOR,URINE YELLOW; GLUCOSE,URINE NEGATIVE (NEGATIVE); KETONES,URINE NEGATIVE (NEGATIVE); LEUKOCYTE ESTERASE,URINE NEGATIVE (NEGATIVE); NITRITE,URINE NEGATIVE (NEGATIVE); OCCULT BLOOD,URINE NEGATIVE (NEGATIVE); PROTEIN,URINE NEGATIVE (NEGATIVE); UROBILINOGEN,URINE 0.2 EU/dL (<2.0)
[2023-02-23 00:36] LABS: A/G RATIO 0.9 (0.9-1.6); ALBUMIN 3.2 g/dL (3.4-5.0); BILIRUBIN TOTAL 0.2 mg/dL (0.2-1.0); CALCIUM 8.9 mg/dL (8.5-10.1); CARBON DIOXIDE,CO2 23.5 mmol/L (21.0-32.0); CREATININE 0.7 mg/dL (0.6-1.0); EST CRCL DRUG DOSING (CG) 100.74 mL/min; PROTEIN TOTAL,TP 6.8 g/dL (6.4-8.2)
[2023-02-23 01:18] LABS: INFLUENZA A NAA NEGATIVE (NEGATIVE); INFLUENZA B NAA NEGATIVE (NEGATIVE)
== END 2023-02-23 01:59 | disposition home or self-care (01) ==
LOC: MW.ED 21:30
DX: O21.9 Vomiting of pregnancy, unspecified (principal); O29.41 Spinal and epidural anesthesia induced headache during pregnancy, first trimester; O99.281 Endocrine, nutritional and metabolic diseases complicating pregnancy, first trimester; O99.611 Diseases of the digestive system complicating pregnancy, first trimester; Z3A.10 10 weeks gestation of pregnancy; Z88.0 Allergy status to penicillin; Z90.49 Acquired absence of other specified parts of digestive tract
CPT/HCPCS: 36415; 80053; 81003; 83690; 85025; 96361; 96374; 96375; 99284; J1200; J2765; J3490; J7030

== ENCOUNTER 2023-02-25 19:15 | Emergency (ER) | payer BC | END 2023-02-25 21:48 | disposition home or self-care (01) | LOC: MW.ED 19:15 | DX: O99.891 Other specified diseases and conditions complicating pregnancy (principal); R51.9 Headache, unspecified; Z88.0 Allergy status to penicillin; Z3A.11 11 weeks gestation of pregnancy; Z90.49 Acquired absence of other specified parts of digestive tract | CPT/HCPCS: 70450; 70450-26; 99283; 99284 ==

== ENCOUNTER 2023-09-20 07:26 | Inpatient (IN) | payer BC ==
[2023-09-20] MEDS ORDERED: Tranexamic Acid IN NACL,ISO-OS 1,000 MG in Premix Bag 1 BAG IV PRN (10:15)
[2023-09-20] MEDS ORDERED: Sodium Chloride 0.9% 2.5 ML Syringe FLUSH PRN (10:15)
[2023-09-20] MEDS ORDERED: Sodium Chloride 0.9% 20 ML SDV IV PRN (10:15)
[2023-09-20] MEDS ORDERED: Butorphanol 2 MG/ML SDV IVPUSH PRN (10:15)
[2023-09-20] MEDS ORDERED: Ondansetron 4 MG/2 ML SDV IVPUSH PRN (10:15)
[2023-09-20] MEDS ORDERED: Methylergonovine 0.2 MG/1 ML Amp IM PRN (10:15)
[2023-09-20] MEDS ORDERED: Sodium Chloride 0.9% 10 ML Syringe FLUSH PRN (10:15)
[2023-09-20] MEDS ORDERED: Misoprostol 200 MCG Tab PO PRN (10:15)
[2023-09-20] MEDS ORDERED: Water For Irrigation,Sterile 1,000 ML Container IRR PRN (10:15)
[2023-09-20] MEDS ORDERED: Carboprost Tromethamine 250 MCG/1 mL Vial IM PRN (10:15)
[2023-09-20] MEDS ORDERED: Lidocaine 1% 50 ML MDV INJECT PRN (10:15)
[2023-09-20] MEDS ORDERED: Oxytocin/0.9 % Sodium Chloride 30 UNIT/500 ML BAG IV SCH ×2 (10:15)
[2023-09-20] MEDS ORDERED: Terbutaline 1 MG/ML SDV SUBCUT PRN (10:15)
[2023-09-20] MEDS ORDERED: Misoprostol 25 MCG (1/4 of 100 MCG) Tab VAG PRN ×2 (10:15)
[2023-09-20] MEDS ORDERED: Phenylephrine HCl In 0.9% NaCl 1 MG/10 ML Syringe IVPUSH PRN (10:32)
[2023-09-20] MEDS ORDERED: ePHEDrine 50 MG/ML SDV IVPUSH PRN ×2 (10:32)
[2023-09-20] MEDS ORDERED: dexmedeTOMIDine HCl 200 MCG/2 ML SDV EPIDUR SCH (10:45)
[2023-09-20 10:55] LABS: HEMATOCRIT 35.5 % (37.0-47.0); HEMOGLOBIN 12.1 g/dL (12.0-16.0); MEAN CORPUSCULAR HEMOGLOBIN 29.4 pg (28.0-32.0); MEAN CORPUSCULAR HGB CONC 34.1 g/dL (32.0-36.0); MEAN CORPUSCULAR VOLUME 86.4 fL (83.0-99.0); MEAN PLATELET VOLUME 10.8 fL (9.4-12.3); PLATELET COUNT,PLT 265 K/uL (150-400); RED BLOOD CELL COUNT 4.11 M/uL (4.10-5.30); WHITE BLOOD CELL COUNT,WBC 13.99 K/uL (3.9-11.3)
[2023-09-20] MEDS: Ropivacaine HCl/PF 400 MG in Premix Bag 1 BAG EPIDUR SCH (11:17)
[2023-09-20] MEDS: Lactated Ringers 1,000 ML IV SCH (14:03)
[2023-09-20] MEDS ORDERED: Lanolin 100% Cream 7 GM Tube TOP PRN (17:51)
[2023-09-20] MEDS ORDERED: oxyCODONE 5 MG Tab PO PRN (17:51)
[2023-09-20 18:15] LABS: PH,UMBILICAL ARTERIAL 7.081 (7.18-7.38); PH,UMBILICAL VENOUS 7.257 (7.25-7.45)
[2023-09-20] MEDS: Witch Hazel Medicated Pads 40/Jar TOP PRN (20:10)
[2023-09-20] MEDS: Acetaminophen 500 MG Tab PO PRN (20:10)
[2023-09-20] MEDS: Benzocaine/Menthol 20%-0.5% Spray 78 GM Cannister TOP PRN (20:10)
[2023-09-20] MEDS: Docusate Sodium 100 MG Cap PO PRN (20:11)
[2023-09-21] MEDS: Ibuprofen 800 MG Tab PO PRN (00:24)
[2023-09-21 05:38] LABS: HEMATOCRIT 27.7 % (37.0-47.0); HEMOGLOBIN 9.4 g/dL (12.0-16.0)
== END 2023-09-21 20:35 | disposition home or self-care (01) | DRG 560 ==
LOC: MW.OBCHECK 07:26 → MW.OB 07:28 → MW.OBCHECK 10:15 → MW.OB 10:15 → OBSVTOIN 10:15 → MW.OB 09-21 00:56
PROVIDERS: ADMIT Obstetrics & Gynecology; ATTEND Obstetrics & Gynecology
PROC: 10E0XZZ Delivery of Products of Conception, External Approach (ICD-10-PCS; principal; 2023-09-20)
PROC: 0HQ9XZZ Repair Perineum Skin, External Approach (ICD-10-PCS; 2023-09-20)
DX: O77.0 Labor and delivery complicated by meconium in amniotic fluid (principal); Z3A.40 40 weeks gestation of pregnancy; Z37.0 Single live birth; O70.0 First degree perineal laceration during delivery
CPT/HCPCS: 36415; 51702; 59025; 59409; 59414; 82803; 85014; 85018; 85027; 86592; 86850; 86900; 86901; A9270-GY; J2795; J7120